=== PATIENT | male | born 1995 | race Caucasian/White ===

== ENCOUNTER 2016-05-08 20:16 | Emergency (ER) | payer MEDICAID ==
[2016-05-08 20:28] VITALS: BP 116/67
--- NOTE | 2016-05-08 20:37 | ER Document Report ---
HPI - HPI Patient complains to provider of: rash Onset: Yesterday Onset/Duration: Sudden Quality of pain: No pain Context: Patient presents emergency department with complaints of rash to his back. He also reports rash on both arms and on his hand. Reports he noted the rash after he slept on a mattress. Reports it is very itchy. He reports his mom also slept on the mattress and started itching also. Associated Symptoms: None Exacerbated by: Denies Relieved by: Denies Similar symptoms previously: No Recently seen / treated by doctor: No Past Medical History - General Information source: Patient - Social History Smoking Status: Unknown if Ever Smoked Cigarette use (# per day): No Frequency of alcohol use: None Drug Abuse: None Lives with: Family Family History: Reviewed & Not Pertinent - Medical History Medical History: Negative Surgical Hx: Negative - Immunizations Immunizations up to date: Yes Vertical Provider Document - CONSTITUTIONAL Agree With Documented VS: Yes Exam Limitations: No Limitations General Appearance: WD/WN, No Apparent Distress - HEENT HEENT: Atraumatic, Normocephalic - NECK Neck: Normal Inspection, Supple - RESPIRATORY Respiratory: Breath Sounds Normal, No Respiratory Distress O2 Sat by Pulse Oximetry: 97 - CARDIOVASCULAR Cardiovascular: Regular Rate - MUSCULOSKELETAL/EXTREMETIES Musculoskeletal/Extremeties: MAEW, FROM - NEURO Level of Consciousness: Awake, Alert, Appropriate Motor/Sensory: No Motor Deficit - DERM Integumentary: Warm, Dry, Rash Adult Front & Back Diagram: 1 - scattered macular papules no pustules to back arms finger Course - Re-evaluation Re-evalutation: 05/08/16 20:57 pt instructed on scabies. - Vital Signs Vital signs: Temp Pulse Resp BP Pulse Ox 98.7 F 69 16 116/67 97 05/08/16 20:27 05/08/16 20:27 05/08/16 20:27 05/08/16 20:27 05/08/16 20:27 Discharge - Discharge Clinical Impression: pruitis, Scabies Condition: Stable Disposition: HOME, SELF-CARE Instructions: Scabies ([facility]), Use of Diphenhydramine Additional Instructions: *You have been treated for scabies *Apply medication as prescribed *avoid itching, take benadryl as indicated *Apply cool packs or take a cool shower for extreme itching *Follow up with a primary care provider within one week *Return to ED for signs of infection, worsening condition, changes, needs Prescriptions: Permethrin [Acticin 5% Cream 60 gm] 1 applic TP ONCE PRN #1 tube PRN Reason:
== END 2016-05-08 20:40 | disposition home or self-care (01) ==
LOC: ER 20:16
DX: B86 Scabies (principal); L29.9 Pruritus, unspecified
CPT/HCPCS: 99282

== ENCOUNTER 2019-01-12 04:11 | Emergency (ER) | payer SELFPAY ==
--- NOTE | 2019-01-12 06:22 | RADIOLOGY REPORT (SQ) ---
EXAM DESCRIPTION: XR HAND 1-2 VIEWS COMPLETED DATE/TME: 01/12/2019 00:00 CLINICAL HISTORY: 23 years, Male, right ring finger lac. rule out foreign material COMPARISON: None. NUMBER OF VIEWS: 2 TECHNIQUE: 2 views of the right hand LIMITATIONS: None. FINDINGS: Negative for fracture or dislocation. Soft tissue injury of the fourth digit. Overlying bandaging material. There is no other evidence for radiopaque foreign body IMPRESSION: Overlying bandaging material. No acute osseous abnormality copyright 2010 [employer]- All Rights Reserved
[2019-01-12] MEDS ORDERED: LIDOCAINE 1% INJ-PF (10 MG/ML) 30 ML SDV INJ ONE (08:35)
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
[2019-01-12] MEDS ORDERED: DIPH/PERTUSS(ACELL)/TETANUS VAC/PF 0.5 ML SYR (>=10YO) IM ONE (09:13)
[2019-01-12 09:56] VITALS: BP 126/80
== END 2019-01-12 09:56 | disposition home or self-care (01) ==
LOC: ER 04:11
DX: S61.214A Laceration without foreign body of right ring finger without damage to nail, initial encounter (principal); W51.XXXA Accidental striking against or bumped into by another person, initial encounter; Y92.009 Unspecified place in unspecified non-institutional (private) residence as the place of occurrence of the external cause; F17.200 Nicotine dependence, unspecified, uncomplicated; F12.10 Cannabis abuse, uncomplicated
CPT/HCPCS: 99283; 90471; 73120; 90715; 12001; J3490